=== PATIENT | female | born 1970 | race Caucasian/White ===

== ENCOUNTER 2023-11-13 09:11 | Outpatient (AMB) | payer OTHER, SELFPAY ==
--- NOTE | 2023-11-13 09:53 | HO.SPINEOV ---
Intake Visit Reasons: feet & arms numbness tingling Intake Note: Ms. Guerra is here today c/o numbness and tingling on arms and feet. 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 She comes in today with a several chief complaints. She states she has numbness in her bilateral upper extremities which waxes/wanes throughout the day. She more so has numbness on the right side, and states that her first 2 phalanges on this side are predominantly affected. She denies any significant pain. Most recently she had a popping / pulling sensation occur between she shoulder blades 6 weeks ago that caused her to have worsening R sided numbness. She reports a pertinent medical history of a C5-6 ACDF in [address] Ballesteros. She decided to make her appointment today after a recent repeat MRI reported loss of disc height between C6-7. She has been to physical therapy after her surgery, and states she had mixed emotions after her ACDF. She had resolution of R sided pain, which was the initial indication, but has had on and off neurological symptoms since. In addition to the aforementioned symptoms, she states she has a feeling of dullness/weakness in her bilateral shoulders and bilateral hips. She also reports some tingling of her bilateral toes (diffusely) and states it feels like it is ?hard for me to get up off of a chair. PMH: Stage 2 endometriosis, osteoarthritis, vertigo since ACDF. Social hx: Patient does not smoke, no reported substance use. Medications: Ibuprofen, flexeril, B12, D3, Magnesium. Allergies: NKDA. Physical exam: The patient has 5/5 strength in her upper and lower extremities. No proximal muscle weakness. She is able to ambulate well without a spastic gait. She has no notable sensational differences on exam. She rises from a seated position without difficulty. (+) bilateral Cerna's, (+) 2-3 beats of clonus in bilateral ankles, (+) hyperreflexia diffusely. (-) Babinski. (-) bilateral straight leg raise. Imaging review: MRI of the cervical spine completed at [facility] 1 month ago was compared to previous MRI done in 2018. There appears to be a surgical construct at C5-6. There is some loss of disc height at C6-7 but is not causing any significant central canal or foraminal stenosis. There is no significant cord signal change noted. I also reviewed the patient's cervical x-ray which showed no signs of instability or subluxation. She requested that we additionally review her thoracic x-ray, which also showed no signs of subluxation or instability. Impression: Kassie is a pleasant 53-year-old female who is self-referred to our practice after recent exacerbation of some neurological symptoms. She was reportedly stretching at home when she felt a popping/pulling sensation between her shoulder blades. She has had a plethora of neurological symptoms ?flare up? since this incident. Most predominantly she is concerned about the feeling of numbness in her right upper extremity/1st 2 digits. I do not see anything on MRI imaging that is severe enough to warrant a surgical intervention at this time. I am concerned that she has myelopathic reflexes on exam with no confounding medications noted. I will be ordering her a MRI of the thoracic spine to ensure there is no impingement here that could be causing her to have her lower extremity symptoms. I asked her to call the office and inform us after MRI is complete. Thank you for allowing us to care for your patient. The total time spent with this visit with this patient was 65 minutes reviewing history, physical exam, MRI / X-ray of cervical and thoracic spine imaging review, and implementation of treatment plan or further diagnostic testing Aaron Garibay MD,PhD [facility] Orders: Orders MR thoracic spine wo con Today M54.2 - Cervicalgia Coding Level of Care Code New Pt Level 5 (86363) Diagnoses Cervicalgia M54.2
== END 2023-11-13 10:48 | disposition home or self-care (01) ==
PROVIDERS: PCP Nurse Practitioner Family; Visit Provider Physician Assistant
DX: M54.2 Cervicalgia (principal)
CPT/HCPCS: 99205

== ENCOUNTER → 2023-11-13 09:11 | Outpatient (BNVA) | payer OTHER, SELFPAY | PROVIDERS: PCP Nurse Practitioner Family; Visit Provider Physician Assistant ==

== ENCOUNTER 2024-02-16 14:06 | Outpatient (REF) | payer OTHER, SELFPAY ==
[2024-02-17 18:03] LABS: Thyroid Peroxidase Antibodies 70 IU/mL (<9)
[2024-02-17 22:33] LABS: Triiodothyronine T3 Free 3.5 pg/mL (2.3-4.2)
[2024-02-20 20:54] LABS: Thyrotropin Receptor Antibody <1.00 IU/L (<=2.00)
[2024-02-21 20:42] LABS: Alk.Phos Iso. Macrohepatic 0 % (<=0); Alk.Phos Isoenzymes Bone 55 % (28-66); Alk.Phos Isoenzymes Intest 0 % (1-24); Alk.Phos Isoenzymes Liver 45 % (25-69); Alk.Phos Isoenzymes Placental 0 % (<=0); Alk.Phos Isoenzymes Total 119 U/L (37-153)
[2024-02-24 10:09] LABS: Metanephrine, Free 40 pg/mL (<=57); Normetanephrines, Free 94 pg/mL (<=148); Total Metanephrine, Free 134 pg/mL (<=205)
== END 2024-02-16 14:07 | disposition home or self-care (01) ==
LOC: HO.LAB 14:06
PROVIDERS: PCP Nurse Practitioner Family; Visit Provider Internal Medicine Endocrinology, Diabetes & Metabolism
DX: E27.40 Unspecified adrenocortical insufficiency (principal); E04.9 Nontoxic goiter, unspecified
CPT/HCPCS: 36415; 83520; 83835; 84080; 84439; 84443; 84481; 86376

== ENCOUNTER 2024-02-16 14:06 | Outpatient (AMB) | payer OTHER, SELFPAY ==
--- NOTE | 2024-02-16 14:37 | MHC.OFFVIS ---
Vital Signs 02/16/24 14:39 Height 5 ft 4 in Weight 142 lb 13.753 oz BMI 24.5 BP 108/72 Blood Pressure Location Rt brachial Position Sitting Pulse 112 H Pulse Source Pulse Oximeter Intake Visit Reasons: HPA axis Intake Note: New patient present today for HPA axis. C/o losing 20 pounds in the past 1 month, has trouble sleeping, losing hair, anxious, rapid nail growth. Patient states she usually is calm and now panics. Patient reports family hx of Thyroid problems and Ulisses's Motos Disease. 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 Patient was on for . Currently not on steroids. Cortisol was 6 at 02:00 o'clock in the afternoon. Was on BCP for 25 yrs off in July 2024 . Got Covid in August 2023 . In Oct. experienced numbness R sided face and back. Was placed on Prednsone on 10/2023 . [place] horrible and stopped 60 mg to 0. Placed back on taper for 2 wks then went off. Off steroids had tachycardia and panic attacks. Not on steroids or Activan Lost 25 lbs unitentionally. On estradiol for few days. Before estradiol started , cortisol AM was 15 . has Holter monitor placed Strong family hx of thyroid problems [facility] Medical History (Updated 02/16/24 @ 15:13 by Castro Tao MD) Adrenal insufficiency Surgical History (Updated 02/16/24 @ 14:05 by ABHIJEET Prakash) History of surgery Hx of tonsillectomy Hx of adenoidectomy Family History Mother History of hypertension History of thyroid surgery Father History of hypertension Social History Alcohol intake: never Patient Tobacco Use Status: Never used Tobacco Physical Exam Vital Signs: Last Vital Signs Pulse 112 H 02/16/24 14:39 BP 108/72 02/16/24 14:39 BMI result Body Mass Index 24.5 Const Other: This is the absence of buccal or skin hyperpigmentation. Thyroid gland is normal size weighs about 15 g . There are no thyroid nodules palpated. There are no orthostatic changes on standing in blood pressure or pulse Assessment & Plan Assessment & Plan (1) Adrenal insufficiency: Code(s): E27.40 - Unspecified adrenocortical insufficiency Category: Medical Plan: This 54-year-old white female with suspicion of adrenal insufficiency. She has a constellation of nonspecific symptoms that do not fit into a endocrine diagnosis. Her a.m. cortisol level was normal prior to starting estrogen ruling out adrenal insufficiency. Patient states that his symptoms may be related to thyroid although her TFTs have been normal previously. Of pheochromocytoma needs to be ruled out as could present this way. Will check thyroid function studies as well as TR AB and TPO antibodies and a thyroid ultrasound the patient's request. Will also check plasma metanephrines. If above testing is normal suggested patient see a patternator as well as sleep medicine as answer may not lying the endocrine [facility]. Cardiology referral would be warranted to check for orthostatic dysfunction Orders: Orders Metanephrines, Plasma Today E27.40 - Unspecified adrenocortical insufficiency Alkaline Phosphatase Isoenzyme Today E27.40 - Unspecified adrenocortical insufficiency US thyroid Today E04.9 - Nontoxic goiter, unspecified Thyroid Peroxidase Antibodies Today E04.9 - Nontoxic goiter, unspecified Free T4 (Free Thyroxine) Today E27.40 - Unspecified adrenocortical insufficiency Thyroid Stimulating Hormone Today E27.40 - Unspecified adrenocortical insufficiency Thyrotropin Receptor Antibody Today E04.9 - Nontoxic goiter, unspecified Triiodothyronine T3 Free Today E04.9 - Nontoxic goiter, unspecified Coding Level of Care Code New Pt Level 4 (44332) Diagnoses Adrenal insufficiency E27.40
[2024-02-16 14:39] VITALS: BP 108/72; PULSE 112; BMI 24.5
== END 2024-02-16 16:10 | disposition home or self-care (01) ==
PROVIDERS: PCP Nurse Practitioner Family; Visit Provider Internal Medicine Endocrinology, Diabetes & Metabolism
DX: E27.40 Unspecified adrenocortical insufficiency (principal)
CPT/HCPCS: 99204

== ENCOUNTER 2024-03-01 12:20 | Outpatient (REF) | payer OTHER, SELFPAY ==
--- NOTE | ~2024-03-01 | US_ITS ---
EXAMINATION: US THYROID CLINICAL INFORMATION: Nontoxic goiter, unspecified. COMPARISON: None available. TECHNIQUE: Linear transducer grayscale and color Doppler examination with attention to the region of the thyroid. FINDINGS: Submitted for interpretation on March 03, 2024 year SIZE: Measurements of the thyroid lobes and nodules are given in sagittal, anteroposterior and transverse dimensions respectively. Right Thyroid Lobe: 6.9 x 1.9 x 2.0 cm, volume 12.6 mL. Parenchyma: The gland echotexture is heterogeneous and nodular. Thyroid vascularity is normal. Left Thyroid Lobe: 6.6 x 1.8 x 1.7 cm, volume 9.6 mL. Parenchyma: The gland echotexture is heterogeneous and nodular. Thyroid vascularity is normal. Isthmus: 0.3 cm in maximum AP dimension. Estimated total number of nodules greater than or equal to 1 cm: 4. Fitness Director nodules are described as follows: 1. Location: Right mid pole. Size: 1.3 x 1.3 x 1.4 cm, volume 1.22 mL. Nodule characteristics: Composition: Solid/almost completely solid (2). Echogenicity: Isoechoic (1). Shape: Not taller than wide (0). Margins: Ill-defined (0). Echogenic Foci: None (0). ACR TI-RADS total points: 3 ACR TI-RADS category: 3 2. Location: Right mid pole medial. Size: 1.1 x 0.8 x 1.1 cm, volume 0.50 mL. Nodule characteristics: Composition: Solid (2). Echogenicity: Isoechoic (1). Shape: Not taller than wide (0). Margins: Ill-defined (0). Echogenic Foci: None (0). ACR TI-RADS total points: 3 ACR TI-RADS category: 3 3. Location: Right lower pole. Size: 2.3 x 2.0 x 1.4 cm, volume 3.47 mL. Nodule characteristics: Composition: Solid (2). Echogenicity: Isoechoic (1). Shape: Taller than wide (3). Margins: Extrathyroidal extension (3). Echogenic Foci: Peripheral calcifications (2). ACR TI-RADS total points: 11 ACR TI-RADS category: 5 4. Location: Left lower pole medial. Size: 1.9 x 1.0 x 1.4 cm, volume 1.42 mL. Nodule characteristics: Composition: Solid/almost completely solid (2). Echogenicity: Isoechoic (1). Shape: Not taller than wide (0). Margins: Extrathyroidal extension (3). Echogenic Foci: None (0). ACR TI-RADS total points: 6 ACR TI-RADS category: 4 5. Location: Left lower pole. Size: 0.7 x 0.6 x 0.6 cm, volume 0.12 mL. Nodule characteristics: Composition: Mixed cystic and solid (1). Echogenicity: Hypoechoic (2). Shape: Not taller than wide (0). Margins: Smooth (0). Echogenic Foci: None (0). ACR TI-RADS total points: 3 ACR TI-RADS category: 3 NODES: No lymphadenopathy is seen in the tissue surrounding the thyroid gland. US/US thyroid IMPRESSION: TI-RADS category 5 nodule in the right thyroid lobe and category 4 on nodular on the left thyroid lobe. ACR TI-RADS RECOMMENDATION REFERENCE: Ultrasound-guided fine-needle aspiration, followup ultrasound, no further follow up. * TR1 (0 point) and TR2 (2 points): No FNA or follow up. * TR3 (3 points): FNA if more than or equal to 2.5 cm in maximum dimension, followup ultrasound in 1, 3 and 5 years if 1.5 to 2.4 cm in maximum dimension. * TR4 (4-6 points): FNA if more than or equal to 1.5 cm in maximum dimension, followup ultrasound in 1, 2, 3 and 5 years if 1 to 1.4 cm in maximum dimension. * TR5 (more than or equal to 7 points): FNA if more than or equal to 1 cm in maximum dimension, followup ultrasound every year for 5 years if 0.5 to 0.9 cm in maximum dimension. * TR3, TR4 or TR5 nodules that are below the size threshold for followup receive no follow up. Electronically signed by: Vishal Barajas MD 03/03/2024 12:34 PM [facility]
--- OUTSIDE RECORDS SUMMARY | 2024-03-03 15:25 | XMS_ITS | Continuity of Care Document ---
Author Organization [facility] [address] [place] [address] Phone [phone] Care Team Providers Care Food Aide Name Role Phone Zoey Veliz NP Care Team Information Receive r [phone] Social History Type Date Description Comments Sex Unknown Medical Devices Description No Information Available Encounters Description No Information Available Assessments Description No Information Available Plan of Treatment Future Appointment(s):* 04/02/2024 1:30 pm - Taran Villela M.D. at Main Office Functional Status Description No Information Available Mental Status Description No Information Available Referrals Description No Information Available
== END 2024-03-01 12:21 | disposition home or self-care (01) ==
LOC: HO.US 12:20
PROVIDERS: PCP Nurse Practitioner Family; Visit Provider Internal Medicine Endocrinology, Diabetes & Metabolism
DX: E04.9 Nontoxic goiter, unspecified (principal)
CPT/HCPCS: 76536

== ENCOUNTER → 2024-03-01 12:23 | Outpatient (BNV) | payer OTHER, SELFPAY | PROVIDERS: PCP Nurse Practitioner Family; Visit Provider Radiology Diagnostic Radiology | DX: E04.9 Nontoxic goiter, unspecified (principal) | CPT/HCPCS: 76536 ==

== ENCOUNTER 2024-03-10 14:41 | Outpatient (AMB) | payer OTHER, SELFPAY ==
[2024-03-10 14:44] VITALS: BP 142/76; PULSE 104; BMI 23.6
--- NOTE | 2024-03-10 14:44 | MHC.OFFVIS ---
Vital Signs 03/10/24 14:44 Height 5 ft 4 in Weight 137 lb 8.958 oz BMI 23.6 BP 142/76 H Blood Pressure Location Lt brachial Position Sitting Pulse 104 H Pulse Source Palpation Intake Visit Reasons: Nontoxic single thyroid nodule Intake Note: Patient present today for Nontoxic single thyroid nodule office visit. 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 Off OCPs in July 2023, was on it for 25 years , stage 4 endometriosis. Now back on HRT on Jan 2024 Got Covid in August 2023 . October 2023 numbness in neck MRI normal neuro evaluation : started prednisone, increased palpitations, insomnia , was on prednisone up until december 08 , prednisone 60 mg stopped it after 4 doses , then was on a taper. After finishing prednsione still dint feel good , lost 30 lbs . Continued to have palpitations. Reports increased stimulation mentally, hair loss, weakness in extremities. heat makes her worse. She was sent to Dr. Tao for these non specific complaints with concerns of possible adrenal insufficinecy , Per last note she had normal cortisol level of 15 in a.m.. I do not see this in the chart. I do see a cortisol of 6 from 15:00. Normal plasma metanephrine levels from 02/16/2024 along with plasma normetanephrine levels. Normal thyroid function. TPO antibodies noted to be elevated. Normal TR AV antibodies. She had an ultrasound of her thyroid 03/01/2024 in showed multiple bilateral nodules with a right lower pole dominant 2.3 cm nodule which is solid, isoechoic taller than wide with a extrathyroidal extension with peripheral calcifications TR 5 category, per NERY guidelines this is a high suspicion nodule with greater than 50% chance of malignancy. Also showed a left lower pole dominant 1.9 cm nodule which is solid, isoechoic, with the extrathyroidal extension, TR 4 category, per NERY guidelines this is also a high suspicious nodule with greater than 50% chance of malignancy. Both of these nodules meet criteria for FNA. Did get exposed to [place] in [place]. Strong family history of thyroid nodules in mother, matenral aunt and grandmothers. Mother has had SANCHEZ and thyroid surgery. No family history of thyroid cancer. Propranolol didnt help Cardiology evaluated her per patient echo is normal, she is currently wearing a Holter monitor. Also got evaluated by Neurology, apparently workup was unremarkable. Patient denies any difficulty swallowing, pain on swallowing or voice changes or difficulty breathing. She does report some pressure sensation when laying flat. Slightly looser bowel movements. Reports tremors and palpitations. Reports heat intolerance Denies having ever used lithium, amiodarone or biotin supplements. Physical exam General: sitting comfortably in no acute distress, HEENT: normocephalic/atraumatic, EOM intact, moist oral mucosa Neck: supple, palpable 1-2 cm left-sided nodule Cardiac: normal heart sounds Pulm: normal breath sounds B/L, no added breath sounds Abd: not distended, no tenderness Extremities: no edema, no signs of myxedema, tremors noted Neuro: AAO x3, Speech: normal, no facial droop, moving all 4 extremities Laboratory Tests 02/16/24 16:38 TSH 1.10 Free T4 1.20 Free T3 3.5 Plasma Free Metaneph 40 Plasma Free Normeta 94 Plas Total Metaneph 134 Thyroid Peroxidase Ab 70 H TSH Receptor Ab <1.00 US THYROID 03/01/2024 CLINICAL INFORMATION: Nontoxic goiter, unspecified. COMPARISON: None available. TECHNIQUE: Linear transducer grayscale and color Doppler examination with attention to the region of the thyroid. FINDINGS: Submitted for interpretation on March 03, 2024 year SIZE: Measurements of the thyroid lobes and nodules are given in sagittal, anteroposterior and transverse dimensions respectively. Right Thyroid Lobe: 6.9 x 1.9 x 2.0 cm, volume 12.6 mL. Parenchyma: The gland echotexture is heterogeneous and nodular. Thyroid vascularity is normal. Left Thyroid Lobe: 6.6 x 1.8 x 1.7 cm, volume 9.6 mL. Parenchyma: The gland echotexture is heterogeneous and nodular. Thyroid vascularity is normal. Isthmus: 0.3 cm in maximum AP dimension. Estimated total number of nodules greater than or equal to 1 cm: 4. Ornament Maker Hand nodules are described as follows: 1. Location: Right mid pole. Size: 1.3 x 1.3 x 1.4 cm, volume 1.22 mL. Nodule characteristics: Composition: Solid/almost completely solid (2). Echogenicity: Isoechoic (1). Shape: Not taller than wide (0). Margins: Ill-defined (0). Echogenic Foci: None (0). ACR TI-RADS total points: 3 ACR TI-RADS category: 3 2. Location: Right mid pole medial. Size: 1.1 x 0.8 x 1.1 cm, volume 0.50 mL. Nodule characteristics: Composition: Solid (2). Echogenicity: Isoechoic (1). Shape: Not taller than wide (0). Margins: Ill-defined (0). Echogenic Foci: None (0). ACR TI-RADS total points: 3 ACR TI-RADS category: 3 3. Location: Right lower pole. Size: 2.3 x 2.0 x 1.4 cm, volume 3.47 mL. Nodule characteristics: Composition: Solid (2). Echogenicity: Isoechoic (1). Shape: Taller than wide (3). Margins: Extrathyroidal extension (3). Echogenic Foci: Peripheral calcifications (2). ACR TI-RADS total points: 11 ACR TI-RADS category: 5 4. Location: Left lower pole medial. Size: 1.9 x 1.0 x 1.4 cm, volume 1.42 mL. Nodule characteristics: Composition: Solid/almost completely solid (2). Echogenicity: Isoechoic (1). Shape: Not taller than wide (0). Margins: Extrathyroidal extension (3). Echogenic Foci: None (0). ACR TI-RADS total points: 6 ACR TI-RADS category: 4 5. Location: Left lower pole. Size: 0.7 x 0.6 x 0.6 cm, volume 0.12 mL. Nodule characteristics: Composition: Mixed cystic and solid (1). Echogenicity: Hypoechoic (2). Shape: Not taller than wide (0). Margins: Smooth (0). Echogenic Foci: None (0). ACR TI-RADS total points: 3 ACR TI-RADS category: 3 NODES: No lymphadenopathy is seen in the tissue surrounding the thyroid gland. US/US thyroid IMPRESSION: TI-RADS category 5 nodule in the right thyroid lobe and category 4 on nodular on the left thyroid lobe. [facility] Medical History (Updated 03/10/24 @ 15:53 by Sabina Barrios MD) Flushing Multinodular goiter Adrenal insufficiency Surgical History History of surgery Hx of tonsillectomy Hx of adenoidectomy Family History Mother History of hypertension History of thyroid surgery Father History of hypertension Social History Alcohol intake: never Patient Tobacco Use Status: Never used Tobacco Physical Exam Vital Signs: Last Vital Signs BP 142/76 H 03/10/24 14:44 BMI result Body Mass Index 26.2 Assessment & Plan Assessment & Plan (1) Multinodular goiter: Code(s): E04.2 - Nontoxic multinodular goiter Category: Medical Plan: 54-year-old female with family history of thyroid nodules but not thyroid cancer, with personal history of exposure to [place], coming in today for initial evaluation of multinodular goiter. Ultrasound from 03/01/2024 showed multiple bilateral nodules with a right lower pole dominant 2.3 cm nodule which is solid, isoechoic taller than wide with a extrathyroidal extension with peripheral calcifications TR 5 category, per NERY guidelines this is a high suspicion nodule with greater than 50% chance of malignancy. Also showed a left lower pole dominant 1.9 cm nodule which is solid, isoechoic, with the extrathyroidal extension, TR 4 category, per NERY guidelines this is also a high suspicious nodule with greater than 50% chance of malignancy. Both of these nodules meet criteria for FNA. I explained that it is common to have thyroid nodules. About 95% of the time these nodules are benign. However if the nodule is > 1 cm in size or suspicious on ultrasound then a fine need aspiration biopsy is recommended. We discussed that a FNAB involves 4-5 passes with a small gauge needle and material obtained is sent off for cytology.If the cytopathology is benign then the nodule will be followed annually with repeat ultrasounds. However if it is suspicious or malignant, we will need to discuss further management. Indeterminate cytology can be further investigated with repeat FNA, genetic testing or empiric lobectomy. Malignant cytology is managed with either lobectomy or total thyroidectomy. We discussed briefly that thyroid cancer is, in most patients, an indolent disease that does not affect mortality. We will arrange for FNA of the left lower pole 1.9 cm and the right lower pole 2.3 cm nodule at next available opening and patient will follow up with me in clinic thereafter for results and further decision making. And patient also is complaining of a lot of symptoms consistent with hyperthyroidism with tremors, palpitations, weight loss, fatigue, increased anxiety that started over the past few months and some of 2022. Her labs have consistently shown normal thyroid function, however her presentation is very much consistent with thyrotoxicosis. Patient is also telling me that her mother also showed consistently normal thyroid labs but on thyroid uptake and scan was found to have toxic nodules with her symptoms being relieved after thyroid surgery. While I reviewed the ultrasound images myself in it does show normal vascularity. We will order an uptake and scan. Plan: -ordered thyroid uptake and scan -scheduled for FNA of the right lower pole 2.3 cm nodule in the left lower pole 1.9 cm nodule in follow up 2 weeks after to discuss results -repeat TSH, free T4, do total T3 and also check TSI antibodies (2) Flushing: Code(s): R23.2 - Flushing Category: Medical Plan: Patient has a lot of nonspecific symptoms with tremors, palpitations, weight loss, fatigue, increased anxiety, with mostly unremarkable Cardiology neurological workup. She is also complaining of flushing. Plasma metanephrine normetanephrine levels unremarkable from January 2024. We will also check a calcitonin level. I will also evaluate her with a 24 hour urine cortisol level. Though unlikely Aaron's as she does not have any other features plus she is losing weight. She is on hormone replacement therapy with the estrogen progesterone. Plan: -ordered calcitonin, 24 hour urine cortisol and creatinine Plan I spent 60 minutes in reviewing the record, seeing the patient and documenting in the medical record. Orders: Orders NM thyroid w uptake Today E04.2 - Nontoxic multinodular goiter Thyroid Stimulating Hormone Today E04.2 - Nontoxic multinodular goiter FT4 by [facility]. Dialysis Today E04.2 - Nontoxic multinodular goiter Thyroid Stimulating Immunoglob Today E04.2 - Nontoxic multinodular goiter Adrenocorticotropic Hormone Today E04.2 - Nontoxic multinodular goiter Cortisol, Free 24Hr Urine Today E04.2 - Nontoxic multinodular goiter Creatinine, 24 Hr Group Today E04.2 - Nontoxic multinodular goiter Cortisol Random Today E04.2 - Nontoxic multinodular goiter Basic Metabolic Panel Today E04.2 - Nontoxic multinodular goiter Triiodothyronine T3 Total Today E04.2 - Nontoxic multinodular goiter Calcitonin Today R23.2 - Flushing US biopsy thyroid Today E04.2 - Nontoxic multinodular goiter Coding Level of Care Code Est Pt Level 5 (40564) Diagnoses Multinodular goiter E04.2 Flushing R23.2 Time Spent (min) 60
== END 2024-03-10 16:07 | disposition home or self-care (01) ==
PROVIDERS: PCP Nurse Practitioner Family; Visit Provider Student in an Organized Health Care Education/Training Program
DX: E04.2 Nontoxic multinodular goiter (principal); R23.2 Flushing
CPT/HCPCS: 99215; 99417

== ENCOUNTER → 2024-03-10 14:41 | Outpatient (BNVA) | payer OTHER, SELFPAY | PROVIDERS: PCP Nurse Practitioner Family; Visit Provider Student in an Organized Health Care Education/Training Program ==

== ENCOUNTER 2024-03-11 08:00 | Outpatient (REF) | payer OTHER, SELFPAY ==
--- OUTSIDE RECORDS SUMMARY | 2024-03-11 08:03 | XMS_ITS | Continuity of Care Document ---
Author Organization [facility] [address] [place] [address] Phone [phone] Care Team Providers Care Layaway Clerk Name Role Phone Zoey Veliz NP Care Team Information Receive r [phone] Social History Type Date Description Comments Sex Unknown Medical Devices Description No Information Available Encounters Description No Information Available Assessments Description No Information Available Plan of Treatment Future Appointment(s):* 04/02/2024 1:30 pm - Taran Villela M.D. at Main Office Functional Status Description No Information Available Mental Status Description No Information Available Referrals Description No Information Available
[2024-03-11 09:39] LABS: Anion Gap 13 (12-20); Blood Urea Nitrogen 12 mg/dL (9-16); Carbon Dioxide 26 mmol/L (22-29); Chloride 106 mmol/L (96-108); Estimated Glomerular Filt Rate > 60; Glucose Random 79 mg/dL (60-115); Sodium 141 mmol/L (135-145)
[2024-03-11 09:55] LABS: Thyroid Stimulating Hormone 1.25 uIU/mL (0.32-4.0)
[2024-03-11 10:28] LABS: Cortisol Random 9.9 ug/dL
[2024-03-12 09:23] LABS: Triiodothyronine T3 Total 102 ng/dL (76-181)
[2024-03-16 16:23] LABS: Thyroid Stimulating Immunoglob <89 % baseline (<140)
[2024-03-17 13:23] LABS: Adrenocorticotropic Hormone 7 pg/mL (6-50)
[2024-03-19 14:22] LABS: FT4 by Equilib. Dialysis 1.8 ng/dL (0.9-2.2)
[2024-03-19 22:03] LABS: Calcitonin <2 pg/mL (<=5)
== END 2024-03-11 08:01 | disposition home or self-care (01) ==
LOC: HO.LAB 08:00
PROVIDERS: PCP Nurse Practitioner Family; Visit Provider Student in an Organized Health Care Education/Training Program
DX: E04.2 Nontoxic multinodular goiter (principal); R23.2 Flushing
CPT/HCPCS: 36415; 80048; 82024; 82308; 82533; 84439; 84443; 84445; 84480

== ENCOUNTER 2024-03-15 09:25 | Outpatient (REF) | payer OTHER, SELFPAY ==
[2024-03-15 10:46] LABS: Creatinine, mg/dL 88.78
[2024-03-15 14:03] LABS: Creatinine, 24Hr Urine 1.3 G/Day (1.0-2.0); Total Volume 24 Hour Urine 1500 mL
[2024-03-26 22:03] LABS: Cortisol Free, 24 Hr Urine 49.9 mcg/24 h (4.0-50.0); Creatinine, 24 Hr Urine 1.35 g/24 h (0.50-2.15); Total Volume, 24 Hr Urine 1500 mL
== END 2024-03-15 09:26 | disposition home or self-care (01) ==
LOC: HO.LNP 09:25
PROVIDERS: Visit Provider Student in an Organized Health Care Education/Training Program
DX: E04.2 Nontoxic multinodular goiter (principal)
CPT/HCPCS: 82530; 82570